=== PATIENT | female | born 1960 | race Caucasian/White ===

== ENCOUNTER 2017-11-27 09:53 | Outpatient (CLI) | payer BC, OTHER ==
[2017-11-27 10:55] LABS: BASOPHILS % (AUTO) 0.4 % (0-1); EOSINOPHILS # (AUTO) 0.1 X10'3 (0-0.9); EOSINOPHILS % (AUTO) 2.1 % (0-6); HEMATOCRIT 42.6 % (35.0-45.0); HEMOGLOBIN 14.4 g/dl (12.0-16.0); LYMPHOCYTES # (AUTO) 1.1 X10'3 (1.1-4.8); LYMPHOCYTES % (AUTO) 19.1 % (21-51); MEAN CORPUSCULAR HEMOGLOBIN 30.5 PG (27.0-31.0); MEAN CORPUSCULAR HGB CONC 33.9 % (33.0-36.5); MEAN CORPUSCULAR VOLUME 89.8 FL (78-98); MONOCYTES # (AUTO) 0.4 X10'3 (0-0.9); MONOCYTES % (AUTO) 7.1 % (2-12); NEUTROPHILS # (AUTO) 4.3 X10'3 (1.8-7.7); NEUTROPHILS % (AUTO) 71.3 % (42-75); PLATELET COUNT 247 X10'3 (140-440); RED BLOOD COUNT 4.74 X10'6 (4.20-5.60); RED CELL DISTRIBUTION WIDTH 12.3 % (11.5-14.5)
[2017-11-27 11:03] LABS: PROTHROMBIN TIME 10.1 SECONDS (9.0-12.0)
[2017-11-27 11:10] LABS: ALANINE AMINOTRANSFERASE 23 U/L (12-78); ALBUMIN 3.8 G/DL (3.4-5.0); ALBUMIN/GLOBULIN RATIO 1.2 (1.1-1.5); ALKALINE PHOSPHATASE 59 IU/L (46-116); ANION GAP 6 (8-16); ASPARTATE AMINO TRANSFERASE 16 U/L (10-37); BILIRUBIN,TOTAL 0.5 MG/DL (0.1-1.0); BLOOD UREA NITROGEN 14 MG/DL (7-18); BUN/CREATININE RATIO 23.7 (6.6-38.0); CALCIUM 9.4 MG/DL (8.5-10.1); CHLORIDE 107 MMOL/L (99-107); CREATININE 0.59 MG/DL (0.40-0.90); GLUCOSE 92 MG/DL (70-104); POTASSIUM 4.3 MMOL/L (3.5-5.1); SODIUM 143 MMOL/L (135-145); TOTAL CARBON DIOXIDE 29.7 MMOL/L (24-32); eGFR > 90 ML/MIN
[2017-11-27 11:17] LABS: CLARITY,URINE CLEAR (Clear); COLOR,URINE YELLOW (Yellow); GLUCOSE, URINE NEGATIVE (Neg); KETONES,URINE NEGATIVE (Neg); LEUKOCYTE ESTERASE ,URINE NEGATIVE (Neg); NITRITES, URINE NEGATIVE (Neg); OCCULT BLOOD,URINE NEGATIVE (Neg); PH,URINE 5.5 (4.8-8.0); PROTEIN,URINE NEGATIVE (Neg); UA COLLECTION TYPE CLN CATCH MIDSTREAM; UROBILINOGEN,URINE 0.2 E.U/dL (0.2-1.0)
== END 2017-11-27 23:59 | disposition home or self-care (01) ==
LOC: LAB 09:53
PROVIDERS: ATTEND Specialist
DX: Z01.818 Encounter for other preprocedural examination (principal); Z51.81 Encounter for therapeutic drug level monitoring; N39.0 Urinary tract infection, site not specified
CPT/HCPCS: 36415; 80053; 81003; 85025; 85610; 87070

== ENCOUNTER 2017-12-11 10:20 | Inpatient (IN) | payer BC, OTHER ==
[~2017-12-11] VITALS: Ht 165.1 cm; Wt 62.6 kg
[2017-12-11] VITALS (16 sets, daily range): BP systolic 85–146; BP diastolic 42–70
[~2017-12-11 10:20] MED LIST: NO HOME MEDS; acetaminophen 325mg tablet PO ONE; celeCOXIB 100mg capsule PO ONE; clindamycin-Cleocin 900mg/D5W 50 ML IV ONE; famotidine 20mg tablet PO ONE; gabapentin 300mg capsule PO ONE; metoclopramide 5 mg/ml inj IV ONE; oxyCODONE SR 10mg (sust. release) tab -2 tabs (20mg) PO ONE; ringers solution, lacted 1,000 ML IV SCH; tranexamic acid inj. 1,500 MG in normal saline 100ml IV soln 100 ML IV ONE
[2017-12-11] MEDS ORDERED: tetracaine 1% (10mg/ml) pres. free inj. ONE (11:41)
[2017-12-11] MEDS ORDERED: ROPIVAcaine 0.5% (5mg/ml) 30ml vial ONE ×2 (11:41→13:03)
[2017-12-11] MEDS ORDERED: ePHEDrine 50MG/ML INJ. ONE (12:57)
[2017-12-11] MEDS ORDERED: dexamethasone sod phosphate 10mg/ml inj ONE (12:57)
[2017-12-11] MEDS ORDERED: bacitracin inj 150,000 UNIT in sodium chloride irrig. sol 3,000 ML IR ONE (13:00)
[2017-12-11] MEDS ORDERED: fentaNYL/PF 50MCG/1 ML 2ML syringe ONE (13:08)
[2017-12-11] MEDS ORDERED: MIDAZolam 1mg/ml 10ml vial ONE (13:08)
[2017-12-11] MEDS ORDERED: ceFAZolin 1000mg inj ONE ×3 (13:29→13:54)
[2017-12-11] MEDS ORDERED: BUPIVAcaine/dex-water/PF 7.5 mg/ml 2ml ampul ONE (13:29)
[2017-12-11] MEDS ORDERED: propofol inj 20 ML IV ONE (13:29)
[2017-12-11] MEDS ORDERED: ringers solution, lacted 1,000 ML IV SCH (14:13)
[2017-12-11] MEDS ORDERED: ondansetron/PF 4mg/2ml inj IV PRN ×2 (14:15)
[2017-12-11] MEDS ORDERED: labetalol 20mg/4ml (5mg/ml) syringe IV PRN (14:15)
[2017-12-11] MEDS ORDERED: morphine 4 MG/ML inj SYRINge IV PRN ×2 (14:15)
[2017-12-11] MEDS ORDERED: hydrALAZINE 20mg/ml inj. IV PRN (14:15)
[2017-12-11] MEDS ORDERED: diphenhydrAMINE 50 mg/ml inj IV PRN (14:15)
[2017-12-11] MEDS ORDERED: fentaNYL/PF 50MCG/1 ML 2ML syringe IV PRN ×2 (14:15)
[2017-12-11] MEDS ORDERED: magnesium hydroxide 30ml (MOM) UD suspension PO PRN (15:15)
[2017-12-11] MEDS ORDERED: diphenhydrAMINE 25mg capsule PO PRN ×2 (15:15)
[2017-12-11] MEDS ORDERED: bisacodyl 10mg suppository rectal RC PRN (15:15)
[2017-12-11] MEDS ORDERED: acetaminophen 325mg tablet PO PRN (15:15)
[2017-12-11] MEDS ORDERED: HYDROmorphone 1 mg/ml syringe IV PRN (15:15)
[2017-12-11] MEDS: potassium cl 20mEq in 1/2 NS 1,000 ML IV SCH (17:45)
[2017-12-11] MEDS: ceFAZolin 1GM/D5W- ADD-VANTAGE 50 ML IV SCH ×2 (17:45→23:39)
[2017-12-11] MEDS: ondansetron/PF 4mg/2ml inj IV PRN (18:50)
[2017-12-11] MEDS: gabapentin 300mg capsule PO SCH (20:33)
[2017-12-11] MEDS: sennosides 8.6mg tablet PO SCH (20:33)
[2017-12-11] MEDS: ascorbic acid 500mg tablet PO SCH (20:34)
[2017-12-12 02:00] VITALS: BP 91/45
[2017-12-12] MEDS: potassium cl 20mEq in 1/2 NS 1,000 ML IV SCH ×4 (02:55→21:47)
[2017-12-12] MEDS: oxyCODONE/APAP 10/325mg tablet PO PRN ×5 (03:58→20:26)
[2017-12-12 05:00] VITALS: BP 105/52
[2017-12-12 05:45] LABS: BASOPHILS % (AUTO) 0 % (0-1); EOSINOPHILS % (AUTO) 0 % (0-6); HEMATOCRIT 33.3 % (35.0-45.0); HEMOGLOBIN 11.1 g/dl (12.0-16.0); LYMPHOCYTES # (AUTO) 0.5 X10'3 (1.1-4.8); LYMPHOCYTES % (AUTO) 4.9 % (21-51); MEAN CORPUSCULAR HEMOGLOBIN 30.1 PG (27.0-31.0); MEAN CORPUSCULAR HGB CONC 33.5 % (33.0-36.5); MEAN CORPUSCULAR VOLUME 89.9 FL (78-98); MEAN PLATELET VOLUME 8.9 FL (7.4-10.4); MONOCYTES # (AUTO) 0.7 X10'3 (0-0.9); MONOCYTES % (AUTO) 7.6 % (2-12); NEUTROPHILS # (AUTO) 8.5 X10'3 (1.8-7.7); NEUTROPHILS % (AUTO) 87.5 % (42-75); PLATELET COUNT 200 X10'3 (140-440); RED CELL DISTRIBUTION WIDTH 11.9 % (11.5-14.5); WHITE BLOOD COUNT 9.7 X10'3 (4.5-11.0)
[2017-12-12 06:07] LABS: INR 1.2 INR; PROTHROMBIN TIME 12.4 SECONDS (9.0-12.0)
[2017-12-12 06:19] LABS: ANION GAP 7 (8-16); CHLORIDE 104 MMOL/L (99-107); POTASSIUM 4.7 MMOL/L (3.5-5.1); SODIUM 137 MMOL/L (135-145); TOTAL CARBON DIOXIDE 25.8 MMOL/L (24-32)
[2017-12-12] MEDS: ondansetron/PF 4mg/2ml inj IV PRN (07:41)
[2017-12-12] MEDS: multivitamins, therapeutics tablet PO SCH (08:35)
[2017-12-12] MEDS: gabapentin 300mg capsule PO SCH ×3 (08:35→20:25)
[2017-12-12] MEDS: ascorbic acid 500mg tablet PO SCH ×2 (08:35→20:25)
[2017-12-12 10:00] VITALS: BP 102/51
[2017-12-12] MEDS ORDERED: warfarin 7.5mg tablet PO ONE (10:00)
[2017-12-12 18:00] VITALS: BP 113/55
[2017-12-12] MEDS: sennosides 8.6mg tablet PO SCH (20:25)
[2017-12-12] MEDS: celeCOXIB 100mg capsule PO SCH (20:25)
[2017-12-12 22:00] VITALS: BP 123/58
[2017-12-13] MEDS: oxyCODONE/APAP 10/325mg tablet PO PRN ×2 (00:16→04:25)
[2017-12-13 06:25] LABS: BASOPHILS % (AUTO) 0.4 % (0-1); EOSINOPHILS % (AUTO) 0.2 % (0-6); HEMATOCRIT 32.1 % (35.0-45.0); HEMOGLOBIN 10.7 g/dl (12.0-16.0); LYMPHOCYTES # (AUTO) 1.2 X10'3 (1.1-4.8); LYMPHOCYTES % (AUTO) 13.4 % (21-51); MEAN CORPUSCULAR HEMOGLOBIN 30.1 PG (27.0-31.0); MEAN CORPUSCULAR HGB CONC 33.4 % (33.0-36.5); MEAN PLATELET VOLUME 9.2 FL (7.4-10.4); MONOCYTES # (AUTO) 0.8 X10'3 (0-0.9); MONOCYTES % (AUTO) 9.4 % (2-12); NEUTROPHILS # (AUTO) 6.7 X10'3 (1.8-7.7); NEUTROPHILS % (AUTO) 76.6 % (42-75); PLATELET COUNT 198 X10'3 (140-440); RED BLOOD COUNT 3.57 X10'6 (4.20-5.60); RED CELL DISTRIBUTION WIDTH 12.4 % (11.5-14.5); WHITE BLOOD COUNT 8.7 X10'3 (4.5-11.0)
[2017-12-13 06:36] LABS: INR 1.6 INR; PROTHROMBIN TIME 16.4 SECONDS (9.0-12.0)
[2017-12-13 06:47] VITALS: BP 116/62
[2017-12-13] MEDS: gabapentin 300mg capsule PO SCH (07:09)
[2017-12-13] MEDS: celeCOXIB 100mg capsule PO SCH (07:09)
[2017-12-13] MEDS: multivitamins, therapeutics tablet PO SCH (07:09)
[2017-12-13] MEDS: ascorbic acid 500mg tablet PO SCH (07:09)
[2017-12-13] MEDS: potassium cl 20mEq in 1/2 NS 1,000 ML IV SCH (07:10)
[2017-12-13] MEDS ORDERED: ASPI-1264 PO (09:31)
[2017-12-13] MEDS ORDERED: warfarin 3mg tablet PO ONE (10:00)
[2017-12-13] MEDS ORDERED: acetaminophen 325mg tablet PO PRN (15:15)
== END 2017-12-13 12:15 | disposition home health service (06) | DRG 470 ==
LOC: EDSTATUS 10:45 → PAS IN 11:23 → EDSTATUS 13:45 → ORTHO 4S 13:50 → PAS IN 14:50 → ORTHO 4S 17:00
PROVIDERS: ADMIT Specialist; ATTEND Specialist
PROC: 3E0T3BZ Introduction of Anesthetic Agent into Peripheral Nerves and Plexi, Percutaneous Approach (ICD-10-PCS; 2017-12-11)
PROC: 0SRC0J9 Replacement of Right Knee Joint with Synthetic Substitute, Cemented, Open Approach (ICD-10-PCS; principal; 2017-12-11 13:02)
DX: M17.11 Unilateral primary osteoarthritis, right knee (principal); D62 Acute posthemorrhagic anemia; Z85.828 Personal history of other malignant neoplasm of skin; Z88.0 Allergy status to penicillin; Z79.82 Long term (current) use of aspirin
CPT/HCPCS: 36415; 73560; 80051; 85025; 85610; 97110; 97116; 97161; A6449; A6455; A7000; C1713; C1758; C1776; J0690; J1100; J1170; J2250; J2405; J2704; J2765; J2795; J3010; J3490; J7030; J7120

== ENCOUNTER → 2018-01-12 | Outpatient (CLI) | payer BC, OTHER ==
[~2018-01-12] MED LIST changes: +ASPI-1264 PO; -acetaminophen 325mg tablet PO ONE; -celeCOXIB 100mg capsule PO ONE; -clindamycin-Cleocin 900mg/D5W 50 ML IV ONE; -famotidine 20mg tablet PO ONE; -gabapentin 300mg capsule PO ONE; -metoclopramide 5 mg/ml inj IV ONE; -oxyCODONE SR 10mg (sust. release) tab -2 tabs (20mg) PO ONE; -ringers solution, lacted 1,000 ML IV SCH; -tranexamic acid inj. 1,500 MG in normal saline 100ml IV soln 100 ML IV ONE
== END | disposition home or self-care (01) ==
LOC: VAS 11:26
PROVIDERS: ATTEND Specialist
DX: M79.661 Pain in right lower leg (principal); Z96.651 Presence of right artificial knee joint; Z79.82 Long term (current) use of aspirin
CPT/HCPCS: 93971